=== PATIENT | male | born 1960 | race Caucasian/White ===

== ENCOUNTER 2019-05-30 08:11 | Emergency (ER) | payer SELFPAY ==
[2019-05-30 09:21] LABS: Bacteria/HPF 2+ HPF (None Seen); Bilirubin Negative (Negative); Blood, Urine 3+ (Negative); Clarity Clear (Clear); Glucose, Urine (Dipstick) Normal (Negative); Leukocyte Negative Leu/uL (Negative); Nitrite Negative (Negative); Protein, Urine (Dipstick) Negative (Neg-Trace); RBC/HPF 21-50 HPF (0-3); Squamous Epithelial 0-3 HPF (0-3); Urobilinogen Normal mg/dL (Less than 2); WBC/HPF 0-3 HPF (0-3)
== END 2019-05-30 09:40 | disposition home or self-care (01) ==
LOC: ERS 08:11
DX: R33.9 Retention of urine, unspecified (principal); I10 Essential (primary) hypertension; F41.9 Anxiety disorder, unspecified; F17.290 Nicotine dependence, other tobacco product, uncomplicated
CPT/HCPCS: 51702; 81003

== ENCOUNTER 2019-05-31 08:12 | Outpatient (CLI) | payer OTHER ==
--- NOTE | 2019-05-31 09:19 | CT ---
CT ABDOMEN AND PELVIS NONCONTRAST: INDICATION: Gross hematuria. COMPARISON: No prior comparison. FINDINGS: Bibasilar scarring/atelectasis is present. There is no urolithiasis or obstructive uropathy. Limite d evaluation of solid abdominal organs, bowel, lymph nodes, and vasculature on the basis of noncontra st technique. There is marked thickening of the urinary bladder wall with an indwelling Peña cathet er. Mild perivesicular fat stranding is present. There is enlargement of the prostate gland. The p rostate measures 5 cm in transverse diameter. There are scattered osseous degenerative changes. IMPRESSION: 1. Marked abnormal wall thickening of the urinary bladder with indwelling Peña catheter. There is perivesicular stranding, as well. Prostatomegaly is present. This could relate to sequelae from chr onic outlet obstruction. Superimposed infectious/inflammatory process or other infiltrative patholog y not excluded. Recommend clinical correlation in this regard. 2. No urolithiasis or obstructive uropathy otherwise depicted. 3. Evaluation otherwise limited in sensitivity on the basis of noncontrast technique. POS: [facility]
== END 2019-05-31 08:13 | disposition home or self-care (01) ==
LOC: BICCT 08:12
PROVIDERS: ATTEND Urology
DX: R31.0 Gross hematuria (principal)
CPT/HCPCS: 74176

== ENCOUNTER 2019-07-10 09:25 | Outpatient (CLI) | payer OTHER ==
--- NOTE | 2019-07-11 08:32 | MRI ---
MRI Pelvis W WO Con History: Prostate cancer. Staging. Comparison: None. Findings: Multiplanar multisequence MRI of the pelvis performed prior to and after the intravenous ad ministration of contrast. Exam was reviewed at an independent 3-D workstation. Prostate: The prostate measures 4.6 x 3.9 x 4.7 for a volume of 37.1 cc. Peripheral zone: From the base through the mid gland and apex from 3:00-7:00 there is marked hypointe nse signal on ADC and hyperintense signal on DWI. Transitional zone: Throughout the transitional zone there is noncircumscribed hypointense T2 signal. This involves the base, mid gland and apex. Capsule: Loss of normal hypointense T2 capsular signal on the left with focal bulge from 4:00-6:00. Neurovascular bundles: Abutment of the left neurovascular bundle from extraprostatic extension. Lymph nodes: No adenopathy. Small left mesorectal lymph nodes measure up to 5 mm. Bones: No abnormal foci of marrow signal replacement on the T1 weighted sequence to suggest osseous m etastatic disease. Intrapelvic soft tissues: Unremarkable. Seminal vesicles: Not definitively involved. Impression: 1. PIRADS 5: Very high (clinically significant cancer highly likely). This occurs throughout the vivar sitional zone from the base to the apex as well as the peripheral zone from 3:00 to 6:00 from the base of the apex. 2. Extraprostatic extension on the left at 4:00-6:00 with neurovascular bundle abutment. 3. Prostatic volume of 37.1 cc. 4. No evidence for osseous or lymphatic metastatic disease.
== END 2019-07-10 09:26 | disposition home or self-care (01) ==
LOC: TBSIIMAG 09:25
PROVIDERS: ATTEND Urology
DX: C61 Malignant neoplasm of prostate (principal)
CPT/HCPCS: 72197

== ENCOUNTER 2019-07-12 09:51 | Outpatient (CLI) | payer OTHER ==
--- NOTE | 2019-07-12 15:28 | NM ---
WHOLE BODY BONE SCAN: HISTORY: Prostate cancer RADIOPHARMACEUTICAL: 30 mCi technetium 99m-MDP injected intravenously COMPARISON: None CORRELATION: MRI prostate of 07/10/2019 FINDINGS: There is scattered degenerative activity in the appendicular skeleton. No other abnormal areas of tracer localization are seen in the skeleton to suggest metastatic disease . Tracer excretion through the kidneys is within normal limits. IMPRESSION: No scintigraphic evidence of osseous metastatic disease.
== END 2019-07-12 09:52 | disposition home or self-care (01) ==
LOC: NM 09:51
PROVIDERS: ATTEND Urology
DX: C61 Malignant neoplasm of prostate (principal)
CPT/HCPCS: 78306; A9503

== ENCOUNTER 2019-10-18 08:00 | Inpatient (IN) | payer BC ==
[2019-11-29 08:54] VITALS: BMI 19.9
[2019-12-12] MEDS ORDERED: Fentanyl 100 MCG/2 ML VIAL ONE ×2 (06:38→06:39)
[2019-12-12] MEDS ORDERED: Midazolam HCl 2 mg/2 ml Vial ONE ×2 (06:38→07:09)
[2019-12-12] MEDS ORDERED: cefOXitin Sodium 1 GM in Sodium Chloride 0.9% 100 ML IVPB PRN (06:52)
[2019-12-12] MEDS ORDERED: Gentamicin Sulfate 80 MG in Premix Bag 1 BAG IVPB PRN (06:55)
[2019-12-12] MEDS ORDERED: cefOXitin 2 GM VIAL ONE (11:00)
[2019-12-12] MEDS ORDERED: Bacitracin Zinc Ointment 30 gm TUBE ONE (14:04)
[2019-12-12] MEDS ORDERED: B & O ONE (14:05)
[2019-12-12] MEDS ORDERED: SUGAMMADEX SODIUM 500 MG/5 ML VIAL ONE (14:06)
[2019-12-12] MEDS ORDERED: Morphine Sulfate 2 MG/ML SYRINGE SLOW IVP PRN (14:28)
[2019-12-12] MEDS ORDERED: PACU-Morphine 4MG/ML VIAL SLOW IVP PRN (14:28)
[2019-12-12] MEDS ORDERED: Ondansetron HCl/PF 4 MG/2 ML Vial IVP PRN (14:28)
[2019-12-12] MEDS ORDERED: Meperidine HCl/PF 25 MG/ML VIAL SLOW IVP PRN (14:28)
[2019-12-12] MEDS ORDERED: Promethazine HCl 25 MG/ML VIAL IM PRN ×2 (14:28→14:45)
[2019-12-12] MEDS ORDERED: HYDROmorphone 2 MG/ML VIAL SLOW IVP PRN (14:28)
[2019-12-12] MEDS ORDERED: Promethazine HCl 25 MG/ML VIAL SLOW IVP PRN (14:28)
[2019-12-12] MEDS ORDERED: Zolpidem Tartrate 5 MG TAB PO PRN (14:45)
[2019-12-12] MEDS ORDERED: diphenhydrAMINE 50 MG/ML VIAL IM/IV PRN (14:45)
[2019-12-12] MEDS ORDERED: Naloxone HCl 0.4 mg/ml Vial IV PRN (14:45)
[2019-12-12] MEDS ORDERED: diphenhydrAMINE 25 MG CAP PO PRN (14:45)
[2019-12-12] MEDS ORDERED: fentaNYL Citrate/PF 2,000 MCG in Sodium Chloride 0.9% 60 ML IV PRN (14:45)
[2019-12-12] MEDS ORDERED: Dexamethasone 20 MG/5 ML VIAL ONE (14:57)
[2019-12-12] MEDS ORDERED: Rocuronium Bromide 10 MG/ML (10ML VIAL) ONE (14:57)
[2019-12-12] MEDS ORDERED: Ondansetron PF 4 MG/2 ML Vial ONE (14:57)
[2019-12-12] MEDS ORDERED: Vecuronium 10 MG VIAL ONE (14:57)
[2019-12-12] MEDS ORDERED: PROPOFOL 200 MG/20 ML VIAL ONE (14:57)
[2019-12-12] MEDS ORDERED: ePHEDrine/0.9% NaCl/PF SYRINGE 50 mg/10 ml ONE (14:57)
[2019-12-12] MEDS ORDERED: PHENYLEPHRINE-NS 100 MCG/ML 10 ML SYRINGE ONE (14:57)
[2019-12-12] MEDS ORDERED: hydrALAZINE 20 MG/ML VIAL ONE (15:20)
[2019-12-12] MEDS ORDERED: Mag-Al 1200 mg/1200 mg/30 ML UDCUP PO PRN (15:39)
[2019-12-12 16:18] LABS: Hemoglobin 15.2 g/dL (14.0-18.0); Mean Corpuscular HGB CONC 32.4 g/dL (32.0-36.0); Mean Corpuscular Hemoglobin 33.6 pg (27.0-31.0); Mean Platelet Volume 8.2 fL (7.4-10.4); Platelet Count 213 thou/uL (130-400); RBC Distribution Width 12.7 % (11.5-14.5); Red Blood Cell (RBC) Count 4.53 mill/uL (4.70-6.10); White Blood Cell (WBC) Count 12.4 thou/uL (4.8-10.8)
[2019-12-12 16:28] LABS: Anion Gap 12 mmol/L (10-20); BUN (Urea Nitrogen) 6 mg/dL (8.4-25.7); Calc. Creatinine Clearance 110 mL/min (70-130); Calcium 7.9 mg/dL (7.8-10.44); Carbon Dioxide 23 mmol/L (22-29); Chloride 106 mmol/L (98-107); Estimated GFR-MDRD Greater than 90; Glucose 113 mg/dL (70-105); Potassium 4.2 mmol/L (3.5-5.1); Sodium 137 mmol/L (136-145)
--- NOTE | 2019-12-12 17:27 | OP ---
DATE OF PROCEDURE: 12/12/2019 SERVICE: Urology. AUTOMATIC STACKER: Britney Velazquez DO. PREOPERATIVE DIAGNOSIS: Prostate cancer. POSTOPERATIVE DIAGNOSIS: Prostate cancer. PROCEDURES PERFORMED: 1. Robot-assisted laparoscopic prostatectomy with bilateral pelvic lymph node dissection with conversion of surgery to an open procedure. 2. Radical retropubic prostatectomy for completion of the surgery. INDICATIONS FOR PROCEDURE: Mr. Washburn is a 59-year-old white male, who presented to co with elevated PSA of 21. Prostate biopsy demonstrated [place] 4 + 5 prostate cancer in multiple cores. Metastatic workup was negative. We discussed options and recommended combined multimodal therapy with prostatectomy first followed by adjuvant radiation given that the patient has a high likelihood of having persistent disease. All risks and benefits of treatment course were discussed and he has agreed to proceed forward. DESCRIPTION OF PROCEDURE: After identification of armband and verification of consent, the patient was brought back to the operating room. He underwent general anesthesia with endotracheal intubation. He was then positioned for the robotic prostatectomy and prepped and draped in the usual sterile fashion. After appropriate time-out, pneumoperitoneum was obtained through the umbilicus with a Veress needle. Insufflation was carried out at high-flow and low-pressure until 15 mmHg was achieved. Ports were placed in the usual standard fashion with a 12-mm camera port below the umbilicus, a 15 mm robotic stapler port on the right with an players assistant 11-mm port and 5-mm players assistant port on the right and two 8-mm robotic ports on the left. The robot was then docked, and the robotic portion of the surgery was begun. The sigmoid colon was mobilized slightly to allow for proper retraction. An incision was made using monopolar cautery on the anterior aspect of the rectovesical space. The seminal vesicles and vas deferens were identified, but there was a significant amount of fibrotic tissue in this area. These were extremely densely stuck to the surrounding tissues and it was difficult for dissection, but dissection was ultimately achieved. Posterior dissection was attempted, but was difficult due to significant fibrosis. At this point, we elected to stop this portion and move on to the bladder. Incisions were made lateral to the anterior umbilical ligaments on both sides and the bladder dropped down. The bladder anatomy was significantly distorted with a very prominent right medial umbilical ligament and almost absent left medial umbilical ligament. Through some manipulation, the pubic arch was able to be identified and the bladder was able to be dropped down without any kind of bladder injury. The periprostatic space was then developed. The preprostatic fact was dissected off the prostate and was submitted for routine pathologic evaluation. Endopelvic fascia was opened on both sides and dissection was carried out towards the apex of the prostate to develop the lateral aspect of the prostate. The dorsal venous complex was then controlled using a green staple load on the robotic stapler. This resulted in good division of the DVC, but there was still some bleeding coming from anterior to the staple line. This was controlled with a 0 Vicryl on a CT1 needle in a [id number] fashion, which resulted in good hemostasis. The bladder neck was then begun and dissection was carried out with monopolar cautery until the catheter was encountered. Dissection was then carried out posteriorly, but again a significant amount of fibrotic tissue was encountered, which complete loss of the surgical plane between the bladder and prostate. Because the patient did have a known posterior bladder diverticulum, which contained the ureteral orifices, a small bladder injury was made in the midline posterior in the bladder diverticulum. The ureteral orifices did not appear to be injured and the cystotomy was approximately 2-3 mm. This area was accounted for and dissection was attempted to move into different locations, but due to the significant amount of fibrosis, at this point, I felt that I would not be able to safely complete the procedure robotically. I was extremely concerned about being in the wrong plane, dissecting too far posteriorly and ending up in the patient's rectum. As such, I decided to abandon this portion of the procedure and completed open to help assist with the open portion of the surgery. The urethra was dissected out robotically by finishing the anterior dissection. The urethra was dissected out and sharply divided for a nice urethral stump. The rectourethralis muscle was also divided. Bilateral pelvic lymph node dissections were completed using the landmarks of the circumflex femoral vein anteriorly, obturator nerve posteriorly, pubic arch inferiorly, and iliac vein superiorly. All the intervening tissue was removed on the right side. The obturator artery had a small injury, which required Hem-o-migel clips applied to both sides of the obturator artery. Care was taken to make sure the artery was not near the nerve when the clips were applied and the nerve was fully dissected and no clips were found on the obturator nerve. There was no injury to the left side. Both sides had good hemostasis upon completion. An Endo pouch bag was brought in to capture all of the lymph node specimens and these were then brought out through the players assistant port. At this portion, we decided to convert to the open portion of the surgery. The robot was undocked and a Chepe-Sharad was used to close the 11-mm players assistant port and the 15-mm stapler port. Once this was done, the insufflation was taken down. All ports were removed. A midline incision was made from the umbilical incision down to the pubic symphysis with a 10 blade. A Bovie electrocautery was used to dissect between the rectus muscles and dissected into the previously dissected space within the peritoneum and retropubic area, which were now contiguous from the robotic portion. The Bookwalter was applied for retraction. We were able to lift the apex of the prostate up and it was completely fused to the rectum using Metzenbaum scissors. The prostate was slowly peeled away off the rectum with great care to avoid or any rectal injury and none were encountered. The pedicles were divided and a single pedicle artery was oversewn using a 4-0 Vicryl. The space previously dissected for SVs was encountered and the remainder of the bladder neck was dissected under manual dissection until the entire prostate was removed. This was then passed off for routine pathologic evaluation to accompany the lymph node dissection. The bladder was inspected and it was found that there was a fairly large median lobe still attached to the bladder, which contained a fair amount of prostate. This was trimmed off after the ureteral orifices were identified in the posterior diverticulum to ensure that there would not be a ureteral injury. In doing so, the previous cystotomy that was made was incorporated into the bladder neck, obviating a need for any further bladder repair. However, the bladder neck was very wide, so we did perform a bladder neck tapering sutures both on the posterior aspect and on the lateral aspect to make a nice bladder neck. The detrusor muscle was approximated on the posterior aspect of the bladder for more thickening. The bladder mucosa was then everted as it had retracted a fair amount using 4-0 chromic circumferentially around the bladder, which resulted in nice mucosal eversion. Anastomotic sutures were then placed using a 2-0 Vicryl on the UR6, outside in on the urethra and inside out on the bladder, placing sutures at 6 o'clock, 5, and 7, approximately 2 and 10 and at 12 o'clock. The final catheter was then passed through the urethra into the bladder and 15 mL of sterile water placed into the balloon. This was then used to help approximate the bladder neck to the urethra and the sutures were then tied down, starting on the posterior aspect up to the anterior aspect. The bladder was irrigated and there was noted to be a very minor leak coming from around the anastomosis, which will need to be checked for on postoperative with a cystogram. A drain was brought in through the most lateral #3 robotic arm port and placed on the anterior bladder. This was secured with a 2-0 nylon. The periprostatic space then had Tisseel applied for hemostasis. The fascia was then closed using a #1 PDS in a running fashion and then the skin closed with skin yadira. Since we did use yadira along the midline incision, I went ahead and used yadira as well on the port site. Upon completion, the patient was taken out of positioning. He had a StatLock for securing his catheter. He was then awakened and taken to PACU for recovery in stable condition. COMPLICATIONS: None. ESTIMATED BLOOD LOSS: 300 mL. RETAINED TUBES AND DRAINS: An 18-Uzbek Peña catheter with 15 mL of sterile water in the balloon and a #19 ASHLEY drain. SPECIMENS: Prostate, bilateral seminal vesicles, and bilateral pelvic lymph nodes with preprostatic fat. DISPOSITION: The patient will be admitted to the hospital for postoperative recovery. Once he is stable, he will be discharged home and he will follow up with me on an outpatient basis for his cancer surveillance and postoperative care. Job ID: [id number]
[2019-12-12] MEDS: Sodium Chloride 0.9% 1,000 ML IV SCH (17:59)
[2019-12-12] MEDS: Acetaminophen 500 MG TAB PO SCH ×2 (18:23→23:51)
[2019-12-12] MEDS: cefOXitin 1.5 GM in Sodium Chloride 0.9% 100 ML IVPB SCH (18:24)
[2019-12-12] MEDS: Docusate 100 MG CAP PO SCH (21:15)
[2019-12-13] MEDS: Sodium Chloride 0.9% 1,000 ML IV SCH (03:42)
[2019-12-13] MEDS: cefOXitin 1.5 GM in Sodium Chloride 0.9% 100 ML IVPB SCH ×2 (03:42→09:17)
[2019-12-13 05:04] LABS: #Lymphocytes 1.5 thou/uL (1.20-3.40); #Monocytes 1.4 thou/uL (0.11-0.59); %Basophils 0.4 % (0.0-1.0); %Eosinophils 0.3 % (0.0-10.0); %Lymphocytes 14.8 % (21.0-51.0); %Monocytes 13.8 % (0.0-10.0); %Neutrophils 70.7 % (42.0-75.0); Hemoglobin 13.3 g/dL (14.0-18.0); Mean Corpuscular HGB CONC 33.3 g/dL (32.0-36.0); Mean Corpuscular Hemoglobin 34.8 pg (27.0-31.0); Mean Platelet Volume 7.9 fL (7.4-10.4); Platelet Count 187 thou/uL (130-400); RBC Distribution Width 12.7 % (11.5-14.5); Red Blood Cell (RBC) Count 3.82 mill/uL (4.70-6.10); White Blood Cell (WBC) Count 9.9 thou/uL (4.8-10.8)
[2019-12-13] MEDS: Acetaminophen 500 MG TAB PO SCH ×4 (05:15→23:57)
[2019-12-13 05:23] LABS: Anion Gap 9 mmol/L (10-20); BUN (Urea Nitrogen) 7 mg/dL (8.4-25.7); Calc. Creatinine Clearance 93 mL/min (70-130); Calcium 7.5 mg/dL (7.8-10.44); Carbon Dioxide 25 mmol/L (22-29); Chloride 105 mmol/L (98-107); Estimated GFR-MDRD Greater than 90; Glucose 109 mg/dL (70-105); Sodium 135 mmol/L (136-145)
[2019-12-13] MEDS ORDERED: FLU VACC QS2019-20(6MOS UP)/PF 60 MCG/0.5 ML SYRINGE IM ONE (09:00)
[2019-12-13] MEDS: Docusate 100 MG CAP PO SCH ×2 (09:14→21:17)
--- NOTE | 2019-12-13 10:24 | ULT ---
BILATERAL RENAL ULTRASOUND: Date: 12/13/2019 INDICATION: Evaluate for hydronephrosis. COMPARISON: Prior noncontrast CT of the abdomen and pelvis dated 05/31/2019. FINDINGS: There is no evidence of focal renal lesion or hydronephrosis. The bladder is decompressed with a Fole y catheter. Right kidney measures 11.8 x 4.9 x 7.0 cm. Left kidney measures 11.8 x 5.5 x 5.7 cm. IMPRESSION: 1. No focal renal lesion or hydronephrosis. 2. Peña catheter within decompressed bladder. POS: [facility]
[2019-12-13] MEDS ORDERED: Bupivacaine HCl 0.5%/Epinephrine 1:200,000/PF 30 ml Vial ONE (15:00)
--- NOTE | 2019-12-13 18:19 | PRG ---
DATE OF SERVICE: 12/13/2019 SUBJECTIVE: The patient states he is sore on his belly. He does have a little bit of an appetite. He has not been up out of bed. He is using his incentive spirometer. He is not complaining of any significant bladder spasms. He denies any chest pain or shortness of breath. He is not passed any gas. OBJECTIVE: VITAL SIGNS: Temperature 98.8, pulse 84, respirations 18, blood pressure 161/73, saturations 93% on room air. GENERAL: In no apparent distress. He is alert. CARDIOVASCULAR: Regular rate and rhythm. ABDOMEN: Soft, mildly tender to palpation. No guarding or rebound. Positive bowel sounds somewhat hypoactive. ASHLEY drain is in place with serosanguineous fluid. : Peña catheter in place secured with blood-tinged urine, but mostly clear. EXTREMITIES: No clubbing, cyanosis, or edema. SCDs in place. LABORATORY EVALUATION: Full set of labs are in the [facility] system, which I have reviewed. Of note, the patient's white count is 9.9, hemoglobin 13.3. Creatinine of 0.76, sodium of 135. ASSESSMENT AND PLAN: A 59-year-old white male, status post robotic prostatectomy converted to open, postop day 1. He appears to be as expected for a fairly long and difficult surgery. He is currently on a THERMAL CUTTER HELPER, which I would continue for the time being. So long as his pain is relatively well controlled, I do think he can be transitioned to oral pain medication in the near future. I have encouraged him to begin getting up and walking out of bed with assistance. He should keep his Peña secured during this time. I will advance his diet to regular diet and he does have some appetite. I would recommend keeping the ASHLEY drain in for now. We will plan for ASHLEY creatinine when it becomes closer time for drain removal. Dr. Ba will be covering for me over the weekend and I will resume care on Monday. Job ID: [id number]
[2019-12-14 05:26] LABS: #Basophils 0.1 thou/uL (0.0-0.2); #Eosinphils 0.1 thou/uL (0.0-0.7); #Lymphocytes 2.2 thou/uL (1.20-3.40); #Monocytes 1.2 thou/uL (0.11-0.59); #Neutrophils 6.7 thou/uL (1.40-6.50); %Eosinophils 1.1 % (0.0-10.0); %Lymphocytes 21.2 % (21.0-51.0); %Monocytes 11.6 % (0.0-10.0); %Neutrophils 65.2 % (42.0-75.0); Hemoglobin 14.3 g/dL (14.0-18.0); Mean Corpuscular HGB CONC 33.4 g/dL (32.0-36.0); Mean Corpuscular Hemoglobin 35.3 pg (27.0-31.0); Mean Platelet Volume 7.9 fL (7.4-10.4); Platelet Count 185 thou/uL (130-400); RBC Distribution Width 12.7 % (11.5-14.5); Red Blood Cell (RBC) Count 4.05 mill/uL (4.70-6.10); White Blood Cell (WBC) Count 10.3 thou/uL (4.8-10.8)
[2019-12-14] MEDS: Acetaminophen 500 MG TAB PO SCH ×3 (05:41→17:12)
[2019-12-14 05:45] LABS: Anion Gap 11 mmol/L (10-20); BUN (Urea Nitrogen) 7 mg/dL (8.4-25.7); Calc. Creatinine Clearance 110 mL/min (70-130); Calcium 7.9 mg/dL (7.8-10.44); Carbon Dioxide 22 mmol/L (22-29); Chloride 106 mmol/L (98-107); Estimated GFR-MDRD Greater than 90; Glucose 93 mg/dL (70-105); Potassium 3.7 mmol/L (3.5-5.1); Sodium 135 mmol/L (136-145)
[2019-12-14] MEDS: hydrALAZINE 20 MG/ML VIAL SLOW IVP PRN ×2 (05:46→15:56)
[2019-12-14] MEDS: Docusate 100 MG CAP PO SCH ×2 (08:03→20:24)
[2019-12-14] MEDS: Metoprolol Tartrate 50 MG TAB PO PRN ×2 (09:58→20:24)
[2019-12-14] MEDS: Sodium Chloride 0.9% 1,000 ML IV SCH (11:54)
[2019-12-14] MEDS: Ondansetron PF 4 MG/2 ML Vial IVP PRN (17:01)
--- NOTE | 2019-12-14 17:29 | PRG ---
DATE OF SERVICE: 12/14/2019 SUBJECTIVE: Mr. Washburn is overall doing well. He is tolerating a regular diet. He has ambulated. He has not yet passed flatus. He feels somewhat bloated. He has not had a bowel movement. No chest pain or shortness of breath. No other complaints. OBJECTIVE: VITAL SIGNS: Temperature 98.1, heart rate 60s to 70s, blood pressure 169 to 195 over 70s to 90s, respirations 18, and oxygen saturation 95% on room air. GENERAL: He is awake and alert. No apparent distress. CARDIOVASCULAR: Regular rate and rhythm. PULMONARY: Breathing unlabored. ABDOMEN: Soft, appropriately tender to palpation, nondistended. Incision with dressing in place, clean, dry, and intact. GENITOURINARY: Peña catheter in place, draining clear yellow urine. EXTREMITIES: Warm, well perfused. No edema. NEUROLOGIC: No focal deficits. LABORATORY DATA: Hemoglobin 14.3, hematocrit 42.7. Sodium 135, potassium 3.7, chloride 106, bicarb 22, BUN 7, and creatinine 0.64. ASSESSMENT: A 59-year-old male with prostate cancer, postoperative day #2, status post robot-assisted laparoscopic prostatectomy converted to radical retropubic prostatectomy. PLAN: Encourage ambulation. We will discontinue CLASS 1 OWNER OPERATOR as the patient's pain is well controlled and he is not using it much. Transition to oral pain medication with IV for breakthrough pain. Encourage him to eat only small amounts until he has return of bowel function. His urine output and renal function are normal. Anticipate discharge home within the next 1 to 2 days. Job ID: [id number]
[2019-12-14] MEDS: Morphine 2 MG/ML SYRINGE SLOW IVP PRN (17:33)
[2019-12-14] MEDS: HYDROcodone/Acetaminophen 7.5/325 mg Tablet PO PRN (20:23)
[2019-12-15] MEDS: Acetaminophen 500 MG TAB PO SCH ×5 (00:43→23:46)
[2019-12-15 05:42] LABS: #Basophils 0.1 thou/uL (0.0-0.2); #Eosinphils 0.2 thou/uL (0.0-0.7); #Lymphocytes 1.6 thou/uL (1.20-3.40); #Monocytes 1.5 thou/uL (0.11-0.59); #Neutrophils 8.7 thou/uL (1.40-6.50); %Basophils 1.1 % (0.0-1.0); %Eosinophils 1.9 % (0.0-10.0); %Lymphocytes 13.2 % (21.0-51.0); %Monocytes 12.5 % (0.0-10.0); %Neutrophils 71.4 % (42.0-75.0); Hemoglobin 15.8 g/dL (14.0-18.0); Mean Corpuscular HGB CONC 34.1 g/dL (32.0-36.0); Mean Corpuscular Hemoglobin 35.8 pg (27.0-31.0); Mean Platelet Volume 7.8 fL (7.4-10.4); Platelet Count 214 thou/uL (130-400); RBC Distribution Width 12.7 % (11.5-14.5); Red Blood Cell (RBC) Count 4.41 mill/uL (4.70-6.10); White Blood Cell (WBC) Count 12.2 thou/uL (4.8-10.8)
[2019-12-15 05:46] LABS: Anion Gap 13 mmol/L (10-20); BUN (Urea Nitrogen) 7 mg/dL (8.4-25.7); Calc. Creatinine Clearance 116 mL/min (70-130); Calcium 8.3 mg/dL (7.8-10.44); Carbon Dioxide 20 mmol/L (22-29); Chloride 100 mmol/L (98-107); Estimated GFR-MDRD Greater than 90; Glucose 101 mg/dL (70-105); Potassium 3.3 mmol/L (3.5-5.1); Sodium 130 mmol/L (136-145)
[2019-12-15] MEDS: Sodium Chloride 0.9% 1,000 ML IV SCH (06:24)
[2019-12-15] MEDS: Docusate 100 MG CAP PO SCH ×2 (08:31→20:44)
[2019-12-15] MEDS: hydrALAZINE 20 MG/ML VIAL SLOW IVP PRN (08:32)
[2019-12-15] MEDS: Ondansetron PF 4 MG/2 ML Vial IVP PRN (08:45)
[2019-12-15] MEDS: HYDROcodone/Acetaminophen 7.5/325 mg Tablet PO PRN ×4 (08:45→22:54)
[2019-12-15] MEDS: Morphine 2 MG/ML SYRINGE SLOW IVP PRN (12:04)
[2019-12-15] MEDS: Oxybutynin 5 MG TAB PO PRN (13:30)
[2019-12-15] MEDS ORDERED: Potassium Chloride 20 MEQ TAB PO SCH (16:45)
--- NOTE | 2019-12-15 17:58 | PRG ---
DATE OF SERVICE: 12/15/2019 SUBJECTIVE: The patient is doing well. He has not yet passed flatus. He is ambulating and ambulated 3 times in the hallway today so far. He continues to feel bloated. He is tolerating his diet without nausea, but is eating only small amounts. He has not had a bowel movement. He has no chest pain or shortness of breath. No other complaints. OBJECTIVE: VITAL SIGNS: Temperature 98.6, pulse 82, respirations 12, oxygen saturation 94% on room air, blood pressure 146/86. GENERAL: He is alert and oriented x3, in no apparent distress. CARDIOVASCULAR: Regular rate and rhythm. PULMONARY: Breathing unlabored. ABDOMEN: Soft, moderately distended and tympanitic to percussion. Hypoactive bowel sounds. Incision clean/dry/intact with dressings in place. ASHLEY drain with scant serosanguineous output. GENITOURINARY: Peña catheter in place, draining clear yellow urine. EXTREMITIES: Warm and well perfused. No edema. NEUROLOGIC: No focal deficits. LABORATORY DATA: White blood cell count 12.2, hemoglobin 15.8, hematocrit 46.3, platelets of 214. Sodium 130, potassium 3.3, chloride 100, bicarb 20, BUN 13, creatinine 0.61. ASSESSMENT: A 59-year-old male, postoperative day #3, status post robotic prostatectomy converted to radical retropubic prostatectomy, now with ileus, hypokalemia, and hyponatremia. PLAN: The patient's sodium has drifted down as well as his potassium. We will replace potassium orally. Regarding the sodium, the patient is now heparin locked, I encouraged him to his food. We will monitor this. He is asymptomatic. He continues to have an ileus. We will avoid suppositories given the complex nature of this surgery with the prostate being stuck to the rectum. Recommend he continues ambulating. He has no nausea or vomiting. We will check a drain fluid creatinine today. Drain output has diminished significantly and is now minimal and likely can be removed tomorrow. Anticipate discharge once ileus resolves. Job ID: [id number]
[2019-12-16 05:10] LABS: Hemoglobin 16.2 g/dL (14.0-18.0); Mean Corpuscular HGB CONC 33.9 g/dL (32.0-36.0); Mean Corpuscular Hemoglobin 34.8 pg (27.0-31.0); Mean Platelet Volume 8.2 fL (7.4-10.4); Platelet Count 226 thou/uL (130-400); RBC Distribution Width 12.6 % (11.5-14.5); Red Blood Cell (RBC) Count 4.65 mill/uL (4.70-6.10); White Blood Cell (WBC) Count 16.3 thou/uL (4.8-10.8)
[2019-12-16] MEDS: HYDROcodone/Acetaminophen 7.5/325 mg Tablet PO PRN ×2 (05:20→20:37)
[2019-12-16] MEDS: Oxybutynin 5 MG TAB PO PRN ×2 (05:21→14:25)
[2019-12-16] MEDS: Acetaminophen 500 MG TAB PO SCH ×4 (05:25→23:35)
[2019-12-16 05:34] LABS: Anion Gap 13 mmol/L (10-20); BUN (Urea Nitrogen) 7 mg/dL (8.4-25.7); Calc. Creatinine Clearance 120 mL/min (70-130); Calcium 8.3 mg/dL (7.8-10.44); Carbon Dioxide 21 mmol/L (22-29); Chloride 97 mmol/L (98-107); Estimated GFR-MDRD Greater than 90; Glucose 90 mg/dL (70-105); Potassium 3.9 mmol/L (3.5-5.1); Sodium 127 mmol/L (136-145)
[2019-12-16] MEDS: Docusate 100 MG CAP PO SCH ×2 (08:22→20:38)
[2019-12-16] MEDS: Sodium Chloride 0.9% 1,000 ML IV SCH (12:45)
--- NOTE | 2019-12-16 13:39 | PRG ---
DATE OF SERVICE: 12/16/2019 SUBJECTIVE: The patient states he is feeling fine. His belly is a little sensitive, but he is not complaining of overt pain. He has been walking about four times per day. He has had minimal amounts of flatus. No bowel movements. He denies any nausea or vomiting. He is tolerating clear liquids. OBJECTIVE: VITAL SIGNS: Temperature 98.6, pulse 82, respirations 16, blood pressure 157/83, and saturation 94% on room air. GENERAL: No apparent distress. Communicative and alert. CARDIOVASCULAR: Regular rate and rhythm. ABDOMEN: Soft, distended, sensitive to touch and palpation, but no rebound, guarding, or peritoneal signs. Incision is dressed. ASHLEY is serosanguineous. : Peña catheter in place, secured with StatLock with pink urine. EXTREMITIES: No clubbing, cyanosis, or edema. LABORATORY EVALUATION: The patient's white count is 16.3 with a hemoglobin of 16.2. Sodium is currently 127 with a creatinine of 0.59. ASHLEY fluid creatinine is 0.58. ASSESSMENT AND PLAN: A 59-year-old white male with evidence of an ileus with hyponatremia. His potassium is better today. I am not sure if the hyponatremia is secondary to volume overload. The patient is currently hep-locked. Another possibility is SIADH. I will go ahead and obtain a urinalysis to see if the urine is extremely concentrated as well as get a urinary sodium level. Medicine may need to be consulted if the hyponatremia persists. We will plan for labs tomorrow. We would recommend continued restriction of any diluted IV fluids to avoid further hyponatremia. The patient should continue to ambulate and walk, only do liquids as tolerated without any significant intake to avoid vomiting. I will continue to follow along. ASHLEY will probably be removed closer to discharge date. There is no evidence of urine leak at this time. Job ID: [id number]
[2019-12-16 14:12] LABS: Bilirubin Negative (Negative); Blood, Urine 3+ (Negative); Clarity Clear (Clear); Glucose, Urine (Dipstick) Normal (Negative); Leukocyte 250 Leu/uL (Negative); Nitrite Negative (Negative); Protein, Urine (Dipstick) 30 mg/dL (Neg-Trace); Urobilinogen Normal mg/dL (Less than 2)
[2019-12-17] MEDS: Acetaminophen 500 MG TAB PO SCH ×5 (00:33→18:47)
[2019-12-17 05:05] LABS: Anion Gap 12 mmol/L (10-20); BUN (Urea Nitrogen) 8 mg/dL (8.4-25.7); Calc. Creatinine Clearance 112 mL/min (70-130); Calcium 8.5 mg/dL (7.8-10.44); Carbon Dioxide 25 mmol/L (22-29); Chloride 96 mmol/L (98-107); Estimated GFR-MDRD Greater than 90; Glucose 114 mg/dL (70-105); Potassium 3.5 mmol/L (3.5-5.1); Sodium 129 mmol/L (136-145)
[2019-12-17 05:57] LABS: Band 18 % (5-11); Hemoglobin 15.5 g/dL (14.0-18.0); Lymphocytes 5 % (21-51); MDiff Complete? YES; Mean Corpuscular HGB CONC 31.9 g/dL (32.0-36.0); Mean Corpuscular Hemoglobin 32.9 pg (27.0-31.0); Mean Platelet Volume 7.9 fL (7.4-10.4); Monocytes 16 % (0-10); Neutrophil 61 % (42-75); Platelet Count 237 thou/uL (130-400); RBC Distribution Width 12.5 % (11.5-14.5); Red Blood Cell (RBC) Count 4.71 mill/uL (4.70-6.10); White Blood Cell (WBC) Count 13.4 thou/uL (4.8-10.8)
[2019-12-17] MEDS: Docusate 100 MG CAP PO SCH ×2 (09:11→20:13)
[2019-12-17] MEDS: Sodium Chloride 0.9% 1,000 ML IV SCH (11:20)
--- NOTE | 2019-12-17 12:26 | PRG ---
DATE OF SERVICE: 12/17/2019 SUBJECTIVE: The patient states he is feeling pretty good today. He has been up out of bed walking. He did have a small bowel movement yesterday and continues to pass gas. However, his abdomen remains fairly distended. He is not having any nausea. He did tolerate some solid food yesterday, but has mostly been drinking fluids. OBJECTIVE: VITAL SIGNS: Temperature 98.3, pulse 81, respirations 18, blood pressure 164/90, and saturation 93% on room air. GENERAL: No apparent distress, communicative, and alert. CARDIOVASCULAR: Regular rate and rhythm. ABDOMEN: Soft and distended. Incision currently dressed. ASHLEY serosanguineous. No rebound or guarding or peritoneal signs. Positive bowel sounds. : Peña catheter in place, secured with clear yellow urine. EXTREMITIES: No clubbing, cyanosis, or edema. LABORATORY EVALUATION: A full set of labs are in the [facility] system, which I have reviewed. Of note, the patient's white count is 13.4 and hemoglobin of 15.5. Creatinine is currently 0.63. Sodium has increased slightly to 129. Urine shows less than 20 urinary sodium on spot test. ASSESSMENT AND PLAN: A 59-year-old white male with hyponatremia and prostate cancer status post robot assisted lap prostatectomy converted to radical retropubic prostatectomy, complicated by postoperative ileus. The ileus does seem to be resolving as the patient is now having some bowel movements. However, he remains significantly distended. I would recommend continued ambulation, minimizing narcotics, and waiting until he is having better bowel movements with decompression of his abdomen before sending him home. Additionally, the patient's sodium continues to be quite low. I would recommend consultation with Nephrology at this point for consideration for syndrome of inappropriate antidiuretic hormone secretion to ensure that the patient does not have any type of cerebral risk. As I would not recommend him being discharged with a sodium level of 129. We will continue to monitor and make treatment plans and recommendations as appropriate. Job ID: [id number]
[2019-12-17] MEDS ORDERED: STERILE WATER IV SCH (18:15)
[2019-12-17] MEDS ORDERED: SODIUM CHLORIDE IV SCH (18:15)
[2019-12-17] MEDS: Oxybutynin 5 MG TAB PO PRN (18:50)
[2019-12-17] MEDS: HYDROcodone/Acetaminophen 7.5/325 mg Tablet PO PRN (18:50)
[2019-12-17] MEDS: Metoprolol Tartrate 25 MG TAB PO SCH (20:13)
[2019-12-17 23:35] LABS: Anion Gap 11 mmol/L (10-20); BUN (Urea Nitrogen) 8 mg/dL (8.4-25.7); Calc. Creatinine Clearance 112 mL/min (70-130); Calcium 8.3 mg/dL (7.8-10.44); Carbon Dioxide 28 mmol/L (22-29); Chloride 97 mmol/L (98-107); Estimated GFR-MDRD Greater than 90; Glucose 110 mg/dL (70-105); Potassium 3.3 mmol/L (3.5-5.1); Sodium 133 mmol/L (136-145)
--- NOTE | 2019-12-18 00:39 | CON ---
DATE OF CONSULTATION: SERVICE: Renal Medicine. HISTORY OF PRESENT ILLNESS: Mr. Washburn is a 59-year-old white male, who was admitted due to elevated PSA secondary to a prostate cancer. The patient underwent initially robotic laparoscopic prostatectomy, which was converted to an open prostatectomy. We are now being consulted for his progressive azotemia-mostly his serum sodium has gone down to as low as 127. It is now currently at 129. Of interest, this patient has been increasing his free water intake in the last few days after his surgery. REVIEW OF SYSTEMS: No chest pain or shortness of breath. No nausea. No vomiting. Positive for mild postop pain. No diarrhea. No constipation. No productive cough. Denies any gross hematuria per se. No headache. No fever or chills. No abdominal pain. Appetite and energy level are fair. MEDICATIONS: Currently on; 1. P.r.n. acetaminophen. 2. Hydralazine 20 mg IV q.6 hours p.r.n. 3. Metoprolol 50 mg p.o. q.6 p.r.n. 4. Morphine 2 mg IV q.4 p.r.n. 5. Oxybutynin 5 mg q.8 p.r.n.. PAST MEDICAL HISTORY: Recent diagnosis of prostate cancer. PAST SURGICAL HISTORY: Recently status post laparoscopic prostatectomy with conversion to an open prostatectomy. SOCIAL HISTORY: The patient is . No children. Smoked for 25 years 1-1/2 pack per day. Alcohol 4 beers a day. 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 He lives in [place]. Denies any blood transfusion. No IV drug abuse. Education, college graduate. Two siblings. FAMILY HISTORY: Positive family history of prostate cancer and bladder cancer in the family-father had prostate cancer. ALLERGIES: NO KNOWN DRUG ALLERGIES. TRAUMA: None. IMMUNIZATION: Up-to-date. HOSPITALIZATIONS: Please see past medical history. PHYSICAL EXAMINATION: VITAL SIGNS: Blood pressure is 152/90, heart rate 96, respiratory rate 16, temperature 99.1, O2 saturation 93% on room air. GENERAL: Awake, alert, supine, comfortable, not in distress. SKIN: Adequate turgor. HEENT: He has pinkish conjunctivae. Anicteric sclerae. No neck mass. No carotid bruits. No JVD. CHEST: No deformities. LUNGS: Clear breath sounds. No wheezing. No crackles. HEART: Normal sinus rhythm. No murmur. No gallops. No rubs. ABDOMEN: Globular, soft, nontender, no masses. Positive for bowel sounds. Negative for epigastric bruits. GROIN: No inguinal lymphadenopathy. EXTREMITIES: No edema. No deformities. NEUROLOGICAL: Awake, alert, oriented to 3 spheres. Moving all extremities. No tremors. No asterixis. LABORATORY DATA: Laboratories of December 17, 2019; white count 13.4, hemoglobin 15.5, hematocrit 48.6. Sodium 129, potassium 3.5, chloride 96, carbon dioxide 25, BUN 8, creatinine 0.63, glucose 104, calcium 8.5. Urinalysis of December 16, 2019, specific gravity 1.010. Urine sodium is less than 20. ASSESSMENT AND PLAN: 1. Hyponatremia-I suspect this could be hypovolemic hyponatremia due to the decreased p.o. intake with this patient as well as due to a low urine sodium. My bias is to correct the hyponatremia with IV fluid. We can consider giving him 1.5% sodium chloride and run this at 75 mL/hour. We will recheck a basic metabolic panel 6-4 hours after this. We will do a free water restriction also of 1.5 L per day. I think he will tolerate this hypertonic saline since the patient is not in any degree of volume overload. 2. Hypertension. In view of the fact that I will be giving hypertonic saline for this patient, I would probably place him on a regular dose of his blood pressure. We will start him on metoprolol tartrate at 25 mg tablet p.o. b.i.d. on a regular basis. 3. We will recheck basic metabolic panel again in a.m. 4. Prostate cancer, recently status post radical prostatectomy. Dr. Macias is following. Thank you for the consult. We will continue to follow. Job ID: [id number]
[2019-12-18] MEDS: Acetaminophen 500 MG TAB PO SCH ×5 (01:04→23:56)
[2019-12-18 05:55] LABS: Anion Gap 13 mmol/L (10-20); BUN (Urea Nitrogen) 9 mg/dL (8.4-25.7); Calc. Creatinine Clearance 112 mL/min (70-130); Calcium 8.4 mg/dL (7.8-10.44); Carbon Dioxide 24 mmol/L (22-29); Chloride 98 mmol/L (98-107); Estimated GFR-MDRD Greater than 90; Glucose 104 mg/dL (70-105); Potassium 3.3 mmol/L (3.5-5.1); Sodium 132 mmol/L (136-145)
[2019-12-18 06:33] LABS: Band 11 % (5-11); Eosinophils 2 % (0-10); Hemoglobin 15.8 g/dL (14.0-18.0); Lymphocytes 12 % (21-51); MDiff Complete? YES; Macrocytosis SLIGHT = 6-15 cells (100X) (0-5/hpf); Mean Corpuscular HGB CONC 33.3 g/dL (32.0-36.0); Mean Corpuscular Hemoglobin 34.6 pg (27.0-31.0); Monocytes 11 % (0-10); Neutrophil 64 % (42-75); Platelet Count 268 thou/uL (130-400); Platelet Morphology Comment Appears Adequate; RBC Distribution Width 12.5 % (11.5-14.5); Red Blood Cell (RBC) Count 4.58 mill/uL (4.70-6.10); Toxic Granulation SLIGHT; White Blood Cell (WBC) Count 11.7 thou/uL (4.8-10.8)
[2019-12-18] MEDS ORDERED: Potassium Chloride 20 MEQ TAB PO SCH (08:30)
--- NOTE | 2019-12-18 09:46 | PRG ---
DATE OF SERVICE: 12/18/2019 SERVICE: Renal Medicine. SUBJECTIVE: Mr. Washburn is a 59-year-old white male with known history of hyponatremia. Serum sodium yesterday was noted at 129. I reviewed the urine sediment. It was suggestive he may have hypovolemic hyponatremia. We decided to give him 1.5% sodium chloride. Serum sodium is improved this morning at a value of 132. Workup for the hyponatremia was also done, and his TSH was noted to be at 2.7 with a cortisol of 24, which was within normal. However, I did check the uric acid, which was 2.6. It is possible that this patient may indeed have an underlying SIADH. For this reason, we will be continuing his 1.5% sodium chloride, and we will consider starting on sodium chloride tablets at 1 g p.o. t.i.d. No other complaints today. No chest pain or shortness of breath. He is passing air/flatus. OBJECTIVE: VITAL SIGNS: Blood pressure is noted at 129/80, heart rate 68, respiratory rate 16, temperature 98.9, pulse ox 95%. GENERAL: Awake, alert, comfortable, not in distress. SKIN: Adequate turgor. HEENT: Pinkish conjunctivae. Anicteric sclerae. NECK: No neck mass. No carotid bruits. No JVD. CHEST: No deformities. LUNGS: Clear breath sounds. No wheezing. No crackles. HEART: Normal sinus rhythm. No murmur. No gallops. No rubs. ABDOMEN: Globular, soft, and nontender. EXTREMITIES: No edema. No deformities. MEDICATIONS: Medications of December 18, 2019, were reviewed. LABORATORY DATA: Laboratories of December 18, 2019: White count 11.7, hemoglobin 15.8. Sodium 132, potassium 3.3, chloride 98, carbon dioxide 24, BUN 9, creatinine 0.63, calcium 8.4. ASSESSMENT AND PLAN: 1. Hyponatremia - initial evaluation suggested he may simply have hypovolemic hyponatremia. His urine sodium was noted to be less than 20. For that reason, we empirically gave him volume. However, the uric acid is noted to be on the low side suggesting that a component of SIADH is possible with this patient. We will be starting this patient on sodium chloride tablet at 1 g p.o. t.i.d. For the moment, we will continue with the hypertonic saline - 1.5% sodium chloride, and I did increase it back to 75 mL/hour. 2. Hypokalemia. K-Dur 40 mEq 1 tablet was given today. 3. Status post radical prostatectomy, stable. Surgery is following. 4. Recheck basic metabolic panel and CBC in a.m. Job ID: [id number]
[2019-12-18] MEDS: Metoprolol Tartrate 25 MG TAB PO SCH ×2 (09:51→21:30)
[2019-12-18] MEDS: Docusate 100 MG CAP PO SCH ×2 (09:51→21:30)
[2019-12-18] MEDS: STERILE WATER IV SCH ×3 (10:55→23:54)
[2019-12-18] MEDS: SODIUM CHLORIDE IV SCH ×3 (10:55→23:54)
[2019-12-18] MEDS: Sodium Chloride 1 GM TAB PO SCH ×2 (18:51→21:30)
[2019-12-18] MEDS: HYDROcodone/Acetaminophen 7.5/325 mg Tablet PO PRN (18:52)
[2019-12-18 19:00] LABS: Anion Gap 11 mmol/L (10-20); BUN (Urea Nitrogen) 10 mg/dL (8.4-25.7); Calc. Creatinine Clearance 118 mL/min (70-130); Calcium 8.4 mg/dL (7.8-10.44); Carbon Dioxide 27 mmol/L (22-29); Chloride 101 mmol/L (98-107); Estimated GFR-MDRD Greater than 90; Glucose 118 mg/dL (70-105); Potassium 3.9 mmol/L (3.5-5.1); Sodium 135 mmol/L (136-145)
[2019-12-19 05:42] LABS: Anion Gap 11 mmol/L (10-20); BUN (Urea Nitrogen) 9 mg/dL (8.4-25.7); Calc. Creatinine Clearance 124 mL/min (70-130); Calcium 8.1 mg/dL (7.8-10.44); Carbon Dioxide 26 mmol/L (22-29); Chloride 104 mmol/L (98-107); Estimated GFR-MDRD Greater than 90; Glucose 135 mg/dL (70-105); Potassium 3.5 mmol/L (3.5-5.1); Sodium 137 mmol/L (136-145)
[2019-12-19 06:03] LABS: Band 25 % (5-11); Eosinophils 2 % (0-10); Hemoglobin 14.6 g/dL (14.0-18.0); Lymphocytes 10 % (21-51); MDiff Complete? YES; Macrocytosis SLIGHT = 6-15 cells (100X) (0-5/hpf); Mean Corpuscular Hemoglobin 33.5 pg (27.0-31.0); Mean Platelet Volume 7.6 fL (7.4-10.4); Monocytes 16 % (0-10); Neutrophil 47 % (42-75); Platelet Count 334 thou/uL (130-400); RBC Distribution Width 12.6 % (11.5-14.5); Red Blood Cell (RBC) Count 4.35 mill/uL (4.70-6.10)
[2019-12-19] MEDS: Acetaminophen 500 MG TAB PO SCH ×4 (06:08→23:47)
[2019-12-19] MEDS: Sodium Chloride 1 GM TAB PO SCH ×3 (08:28→21:30)
[2019-12-19] MEDS: Docusate 100 MG CAP PO SCH ×2 (08:28→21:30)
[2019-12-19] MEDS: Metoprolol Tartrate 25 MG TAB PO SCH ×2 (08:30→21:30)
--- NOTE | 2019-12-19 09:41 | PRG ---
DATE OF SERVICE: 12/19/2019 SUBJECTIVE: Wu is a 59-year-old white male, who underwent a radical open prostatectomy due to prostate cancer. During this hospitalization, he was noted to be hyponatremic. Initially, the hyponatremia was felt that it could be from a hypovolemic hyponatremia versus SIADH. My feeling is that aside from some degree of volume depletion, he may have underlying SIADH. He was given a 1.5% sodium chloride with improvement of the serum sodium. He is also on free water restriction. I have placed him on sodium chloride tab at 1 g p.o. t.i.d. Serum sodium this morning is much improved. The patient voices no new complaints. No chest pain or shortness of breath. OBJECTIVE: VITAL SIGNS: Blood pressure is 134/79, heart rate 65, respiratory rate 15, temperature 99, pulse ox 91% on room air. GENERAL: The patient is awake, alert, comfortable, not in overt distress. SKIN: Adequate turgor. HEENT: Pinkish conjunctivae. Anicteric sclerae. NECK: No neck mass. No carotid bruits. No JVD. CHEST: No deformities. LUNGS: Clear breath sounds. No wheezing. No crackles. HEART: Normal sinus rhythm. No murmurs, gallops, or rubs. ABDOMEN: Globular, soft, nontender. EXTREMITIES: No edema. MEDICATIONS: Medications of December 19, 2019 was reviewed. LABORATORY DATA: Laboratories of December 19, 2019; white count 14, hemoglobin 14.6. Sodium was 137, potassium 3.5, chloride 104, carbon dioxide 26, BUN 9, creatinine 0.57, calcium 8.1. ASSESSMENT AND PLAN: 1. Hyponatremia, much improved. Serum sodium is now within normal. We will discontinue the 1.5% sodium chloride. Continue free water restriction. Continue sodium chloride tablet at 1 g p.o. t.i.d. 2. Status post radical prostatectomy-Urology is following, stable. 3. Recheck basic met in a.m. Job ID: [id number]
--- NOTE | 2019-12-19 14:00 | PRG ---
DATE OF SERVICE: 12/18/2019 SUBJECTIVE: The patient states he is feeling fine. He is not having much pain. He still has not had much of a bowel movement. He is passing gas. He is tolerating a little bit of a diet without any significant nausea or vomiting. He is still drinking some fluids, although he is now fluid restricted by Dr. Keller and has been started on hypertonic saline for his hyponatremia. OBJECTIVE: VITAL SIGNS: Stable. Afebrile. GENERAL: No apparent distress, communicative, and alert. CARDIOVASCULAR: Regular rate and rhythm. ABDOMEN: Soft and distended. Hypoactive bowel sounds. Incision clean, dry, and intact. ASHLEY serosanguineous. EXTREMITIES: No clubbing, cyanosis or edema. LABORATORY DATA: The full set of labs are in the [facility] system, which I have reviewed. Of note, the patient's white count is 11.7 with a hemoglobin of 15.8. Creatinine is currently 0.6. ASSESSMENT AND PLAN: This is a 59-year-old white male with postoperative ileus and hyponatremia, of which the hyponatremia is resolving. The ileus also seems to be getting a little bit better as he is passing gas. I have recommended he continue to ambulate, continue fluid restrictions and extremely small amounts of fluid only as he desires. It does seem like he is going to start having his ileus resolve soon. I will continue to monitor and make recommendations as appropriate. Job ID: [id number]
--- NOTE | 2019-12-19 14:14 | PRG ---
DATE OF SERVICE: 12/19/2019 SUBJECTIVE: The patient states he is feeling okay. He is not having any complaints. He denies any nausea or vomiting. He is still passing gas, but has not had a bowel movement. His abdomen continues to remain distended. His hyponatremia appears to have resolved now. OBJECTIVE: VITAL SIGNS: Temperature 98.4, pulse 63, respirations 15, blood pressure 157/88, and saturation 93% on room air. GENERAL: No apparent distress, communicative, and alert. CARDIOVASCULAR: Regular rate and rhythm. ABDOMEN: Soft and distended. Incision clean, dry, intact, healing well. ASHLEY, serous. : Peña catheter in place, draining clear yellow urine, secured. EXTREMITIES: No clubbing, cyanosis or edema. LABORATORY DATA: The full set of labs are in the [facility] system, which I have reviewed. Of note, the patient's white count is 14, creatinine 0.57, and sodium of 137. ASSESSMENT AND PLAN: This is a 59-year-old white male with postoperative ileus and resolved hyponatremia. He continues to have distended abdomen, is still not opening up adequately. I think we will go ahead and consult General Surgery to come see and to see if there is any other medical treatment, and we will get a KUB to evaluate for possible bowel obstruction. If he has air-fluid levels all the way down, then I think he is having a slow to respond ileus, and we will see if there are any further recommendations or medications that can be started. The patient has already minimized narcotics and is continuing to ambulate well. I have gone over his pathology results with him which have come back, which demonstrates extremely high aggressive cancer with T4 disease, multiple positive margins and extension of the seminal vesicles. He will likely need both chemotherapy and radiation postoperatively. At the current time, he needs to continue to heal up from his surgery, and these will be done on an outpatient basis. I will continue to follow his labs and ensure that he has resolution of his ileus. Job ID: [id number]
--- NOTE | 2019-12-19 16:37 | RAD ---
Abdomen one view HISTORY: Abdominal pain. Possible obstruction. FINDINGS: Large amount of gas throughout the colon. Projecting over the right mid abdomen is floccule nt gas and soft tissue density having the appearance of the large amount of stool within the right colon and cecum. Small bowel gas pattern is nonspecific. Surgical drain projects over the pelvis from the left lower quadrant. Multiple skin yadira from rece nt surgery. Phleboliths project over the pelvis. A small lobular calcific density projects immediately to the left of the L1 vertebral body and may re present extrinsic artifact. IMPRESSION: Mild gaseous and fecal distention of the colon as detailed above. While a very low colon/ rectal obstruction could cause this appearance, constipation and/or ileus is favored. This is not the appearance of a small bowel obstruction.
[2019-12-19] MEDS: Sodium Chloride 0.9% 1,000 ML IV SCH ×2 (17:31→23:48)
--- NOTE | 2019-12-19 19:32 | CON ---
DATE OF CONSULTATION: REQUESTING PHYSICIAN: Dr. Venancio Macias. CONSULTING PHYSICIAN: Dr. Wilkerson. HISTORY OF PRESENT ILLNESS: Mr. Washburn is a 59-year-old male, who came into the hospital due to severe retention, and he sustained prostate cancer, in which, he underwent laparoscopic prostatectomy with bilateral pelvic lymph node dissection with conversion of surgery to an open procedure on December 12. Postop day 7 today, the patient has developed ileus. He is unable to have bowel, abdominal distention, and able to pass very little gas, and unable to tolerate his diet. Dr. Macias consulted General Surgery for different medical treatment of postop ileus or possible bowel obstruction. Dr. Wilkerson will consult. Dr. Wilkerson saw the patient this afternoon and recommended to treat the postop ileus with aggressive physical activity and Movantik, very limited sign of bowel obstruction on imaging or clinical examination. ALLERGIES: IODINE AND SHELLFISH. PAST MEDICAL HISTORY: None. PAST SURGICAL HISTORY: None. SOCIAL HISTORY: Drinking beer for every day, smoking half a pack a day. Denies drug use. The patient lives at home. REVIEW OF SYSTEMS: Noncontributory except per HPI. PHYSICAL EXAMINATION: GENERAL: The patient is lying in bed with no acute respiratory distress. Complains of abdominal distention and bloating. HEART: Regular rate and rhythm. LUNGS: Clear bilaterally. ABDOMEN: Soft. Abdominal incision site is clean and dry. Severe distention with bowel sound active and mild tender to palpation, but obviously no signs of peritonitis. EXTREMITIES: Neurovascularly intact x4. NEUROLOGIC: No focal neurology deficits. ASSESSMENT: 1. Status post prostatectomy, postop day 7. 2. Postop ileus. PLAN: Dr. Wilkerson saw the patient and recommended to start the patient on Movantik, encouraged aggressive walking, no surgical indication at this time. General Surgery will continue to follow. Please notify General Surgery with any change in the patient's condition. Job ID: [id number] MTDD
[2019-12-19] MEDS: HYDROcodone/Acetaminophen 7.5/325 mg Tablet PO PRN (19:48)
--- NOTE | 2019-12-20 00:25 | PRG ---
DATE OF SERVICE: 12/20/2019 SUBJECTIVE: This is a patient that we are seeing in consultation for an ileus. The patient is status post a radical prostatectomy for prostate cancer. The patient started having some bloating and decreased flatus and no bowel movement. The patient's abdominal x-ray this morning was consistent with ileus and we were asked to evaluate him to see if there were other medical management options available. At the time of my visit, the patient had received his Movantik and had a bowel movement. He denied any nausea or vomiting and felt relieved. ASSESSMENT: Postop ileus, resolved. PLAN: Plan will be to continue supportive care. Advance diet as tolerated. Encourage out of bed and we will see him one more time tomorrow and then likely sign off. Job ID: [id number]
[2019-12-20 05:40] LABS: Anion Gap 12 mmol/L (10-20); BUN (Urea Nitrogen) 9 mg/dL (8.4-25.7); Calc. Creatinine Clearance 136 mL/min (70-130); Calcium 7.7 mg/dL (7.8-10.44); Carbon Dioxide 22 mmol/L (22-29); Chloride 105 mmol/L (98-107); Estimated GFR-MDRD Greater than 90; Glucose 93 mg/dL (70-105); Potassium 3.8 mmol/L (3.5-5.1); Sodium 135 mmol/L (136-145)
[2019-12-20] MEDS: Acetaminophen 500 MG TAB PO SCH (06:02)
[2019-12-20] MEDS: Metoprolol Tartrate 25 MG TAB PO SCH (08:39)
[2019-12-20] MEDS: Sodium Chloride 1 GM TAB PO SCH (08:39)
[2019-12-20] MEDS: Docusate 100 MG CAP PO SCH (08:39)
[2019-12-20] MEDS: Sodium Chloride 0.9% 1,000 ML IV SCH (08:40)
[2019-12-20] MEDS ORDERED: traMADol HCl 50 MG TAB PO PRN ×2 (09:07→09:08)
[2019-12-20] MEDS ORDERED: Ibuprofen 600 MG TAB PO PRN (09:07)
--- NOTE | 2019-12-20 10:19 | PRG ---
DATE OF SERVICE: 12/20/2019 SUBJECTIVE: Mr. Washburn is a 59-year-old white male, who has a diagnosis of prostate cancer, underwent open radical prostatectomy. We are following up this patient for his hyponatremia. Initially, we felt this could be volume related hyponatremia. Empiric volume repletion was given with no significant improvement. He most likely has SIADH. He is status post hypertonic saline. Resume normal saline at 125 mL an hour and in addition, the patient was placed on sodium chloride tablets. No new complaints today. No chest pain. No shortness of breath. OBJECTIVE: VITAL SIGNS: Blood pressure 133/76, heart rate 64, respiratory rate 16, temperature 97.8, pulse ox 92%. GENERAL: The patient is awake, alert, comfortable, not in distress. SKIN: Adequate turgor. HEENT: Pinkish conjunctivae. Anicteric sclerae. NECK: No neck mass. No carotid bruits. No JVD. CHEST: No deformities. LUNGS: Clear breath sounds. HEART: Normal sinus rhythm. No murmur. No gallops. No rubs. ABDOMEN: Globular, soft, nontender. No masses. EXTREMITIES: No edema. No deformities. LABORATORY DATA: Laboratories of December 20, 2019; sodium 135, potassium 3.8, chloride 105, carbon dioxide 22, BUN 9, creatinine 0.52, calcium 7.7. ASSESSMENT AND PLAN: 1. Hyponatremia-consider syndrome of inappropriate antidiuretic hormone secretion. Continue sodium chloride tablets. Currently, on normal saline at 125 mL/hour. If the serum sodium will worsen, we will consider placing him back on hypertonic saline and/or just giving him tolvaptan 15 mg tablets. 2. Status post radical prostatectomy, stable, doing well. Surgery is following. 3. Agree with current management. Recheck basic metabolic panel in a.m. Job ID: [id number]
[2019-12-20 11:23] VITALS: BP 125/72; TEMP 98.7
[2019-12-20] MEDS ORDERED: Acetaminophen 500 MG TAB PO SCH (12:00)
--- NOTE | 2019-12-20 12:01 | PRG ---
DATE OF SERVICE: 12/20/2019 Mr. Washburn is a 59-year-old male. We have been consulted for having ileus. The patient was ordered Movantik yesterday. This morning, the patient had 3 bowel movements, and he is feeling much better. Dr. Wilkerson on round this morning recommended chest pain management, encouraged activity, and discontinued Movantik. General Surgery will sign off from now. Continue care per primary team, Dr. Venancio Macias. Job ID: [id number]
--- NOTE | 2019-12-20 15:29 | PRG ---
DATE OF SERVICE: 12/20/2019 SUBJECTIVE: The patient was seen by Dr. Wilkerson yesterday. His plain film x-ray did not demonstrate high suspicion for bowel obstruction. He was started on Movantik and had subsequently approximately 6 bowel movements. He is feeling much better. His abdomen is less distended. His ASHLEY is now leaking around the ASHLEY site, but is still putting out some fluid. This previously had been checked and found to be consistent with serum and not urine. He states he has minimal pain. Dr. Keller was contacted today and stated that he would be okay with discharge home, but has plans to continue to monitor his hyponatremia. OBJECTIVE: VITAL SIGNS: Afebrile. Vital signs stable have been reviewed. GENERAL: No apparent distress. CARDIOVASCULAR: Regular rate and rhythm. ABDOMEN: Soft and nontender. Minimally distended. Incision is clean, dry, and intact. ASHLEY, serous. : Peña catheter secured with clear yellow urine. EXTREMITIES: No clubbing, cyanosis, or edema. LABORATORY EVALUATION: The full set of labs are in the [facility] system, which I have reviewed. Of note, the patient has no new labs today. ASSESSMENT AND PLAN: A 59-year-old white male with prostate cancer, status post robotic converted to open prostatectomy, postoperative day 8 with subsequent hyponatremia and postoperative ileus now, which both seem to be resolved. He is okay from my standpoint to be discharged home. We will discontinue his ASHLEY drain. He will need to go home with his Peña catheter in place. I will see him back in 1 week for a voiding trial after he received a cystogram to ensure for no urine leak. Additionally, he will need followup with Dr. Keller to ensure that he is not having recurrent hyponatremia. So long as his bowel movements are doing well and he does not have evidence of obstruction, I do not think that he needs any further followup with General Surgery. Job ID: [id number]
--- NOTE | 2019-12-21 02:26 | DIS ---
DATE OF ADMISSION: 12/12/2019 DATE OF DISCHARGE: 12/20/2019 ADMITTING DIAGNOSIS: Prostate cancer. DISCHARGE DIAGNOSES: 1. Prostate cancer. 2. Postoperative ileus. 3. SIADH with hyponatremia. ADMITTING: Venancio Macias MD DISCHARGING: Venancio Macias MD PROCEDURE PERFORMED: Robotic-assisted lap prostatectomy, converted to open radical retropubic prostatectomy. BRIEF HISTORY: Mr. Washburn is a 59-year-old white male with advanced prostate cancer with a PSA of 21 and [place] score of 4 + 5. He had no evidence of metastatic disease and was being brought in for prostatectomy. The full H and P can be found in the scanned portion of the [employer] system. HOSPITAL COURSE: After his surgeries (please see operative note for details) the patient was brought to the surgical floor for postoperative recovery. He had a ASHLEY drain in, as well as a Peña catheter. He did well over the weekend, but started to become distended on his abdomen despite tolerating a regular diet. He was kept on clear liquids with scant amounts of solid food only as tolerated. His abdomen remained distended, although he was passing gas. He was getting up and ambulating quite well. His ASHLEY was putting out approximately between 100 and 300 mL. This was checked for a urine leak, but the ASHLEY creatinine came back at 0.5. During this time, it was noted that the patient's sodium was trending down, initially had started at 138 and subsequently dropped all the way down to 127. Out of concern for the severity of his hyponatremia, consult was placed to Nephrology with Dr. Keller, who saw the patient and stated that he may have SIADH secondary to his surgery. He was started on hypertonic saline as well as salt tabs and fluid restriction, which resulted in normalization of his sodium back up to 137. During this time, the patient did not experience any kind of seizure activity or neurological complications. However, by postop day #7, the patient did not significantly show signs of increase in bowel function. Consult was placed to General Surgery and Dr. Wilkerson came and saw the patient. An x-ray was ordered and the KUB demonstrated no evidence of significant bowel obstruction. The patient was started on Movantik with significant increase in bowel function with subsequently approximately six bowel movements with significant decompression of the patient's bladder. At this point, the patient was already on a minimal amount of pain medication. He had been up walking around. He was fairly comfortable taking care of his catheter. The remainder of his labs besides the sodium looked good. We felt the patient was stable enough for discharge and the patient ultimately was discharged home without any further issues. DISPOSITION: Discharged to home. DISCHARGE CONDITION: Good. DISCHARGE MEDICATIONS: The patient can resume all of his home medications. In addition, he will be given: 1. Hydrocodone 5/325 one tab p.o. q.6 hours p.r.n. pain. 2. Colace 100 mg p.o. b.i.d. 3. Oxybutynin 5 mg p.o. t.i.d. p.r.n. bladder spasms as well as a single dose levofloxacin tablets, take on the day of his catheter removal. I will see him back in approximately 1 week from discharge for staple removal, as well as a cystogram to evaluate him for void trial. Job ID: [id number]
== END 2019-12-20 14:50 | disposition home or self-care (01) | DRG 707 ==
LOC: SURG A 12-12 05:34
PROVIDERS: ADMIT Urology; ATTEND Urology
PROC: 0VT00ZZ Resection of Prostate, Open Approach (ICD-10-PCS; principal; 2019-12-12)
PROC: 07TC0ZZ Resection of Pelvis Lymphatic, Open Approach (ICD-10-PCS; 2019-12-12)
PROC: 0VT30ZZ Resection of Bilateral Seminal Vesicles, Open Approach (ICD-10-PCS; 2019-12-12)
PROC: 0VTQ0ZZ Resection of Bilateral Vas Deferens, Open Approach (ICD-10-PCS; 2019-12-12)
PROC: 8E0W0CZ Robotic Assisted Procedure of Trunk Region, Open Approach (ICD-10-PCS; 2019-12-12)
DX: C61 Malignant neoplasm of prostate (principal); K56.7 Ileus, unspecified; E22.2 Syndrome of inappropriate secretion of antidiuretic hormone; E87.6 Hypokalemia; I10 Essential (primary) hypertension; E78.5 Hyperlipidemia, unspecified; G43.909 Migraine, unspecified, not intractable, without status migrainosus; F17.210 Nicotine dependence, cigarettes, uncomplicated; F41.9 Anxiety disorder, unspecified; Z91.041 Radiographic dye allergy status; Z91.013 Allergy to seafood; Z79.899 Other long term (current) drug therapy
CPT/HCPCS: 36415; 74018; 76770; 80048; 81003; 82533; 82570; 84300; 84443; 84550; 85025; 85027; 86850; 86900; 86901; 88309; 90471; 90686; 90732; A4217; G0008; G0009; J0360; J0670; J0694; J1100; J1642; J2250; J2270; J2405; J2704; J3010; J3490

== ENCOUNTER 2019-11-29 07:14 | Outpatient (CLI) | payer BC, OTHER ==
[2019-11-29 10:28] LABS: Hemoglobin 16.9 g/dL (14.0-18.0); Mean Corpuscular HGB CONC 33.1 g/dL (32.0-36.0); Mean Corpuscular Hemoglobin 33.9 pg (27.0-31.0); Mean Platelet Volume 8.2 fL (7.4-10.4); Platelet Count 223 thou/uL (130-400); RBC Distribution Width 12.6 % (11.5-14.5); Red Blood Cell (RBC) Count 4.98 mill/uL (4.70-6.10); White Blood Cell (WBC) Count 10.3 thou/uL (4.8-10.8)
[2019-11-29 10:33] LABS: INR-International Normal Ratio 0.9; PTT 29.9 SEC (22.9-36.1); Prothrombin Time 12.2 SEC (12.0-14.7)
[2019-11-29 10:39] LABS: ALT (SGPT) 20 U/L (8-55); AST (SGOT) 34 U/L (5-34); Albumin 4.6 g/dL (3.5-5.0); Alkaline Phosphatase 43 U/L (40-110); Anion Gap 15 mmol/L (10-20); BUN (Urea Nitrogen) 8 mg/dL (8.4-25.7); Bilirubin, Total 0.5 mg/dL (0.2-1.2); Calc. Creatinine Clearance 0 mL/min (70-130); Calcium 9.9 mg/dL (7.8-10.44); Carbon Dioxide 27 mmol/L (22-29); Chloride 99 mmol/L (98-107); Estimated GFR-MDRD Greater than 90; Globulin 2.7 g/dL (2.4-3.5); Glucose 96 mg/dL (70-105); Potassium 5.1 mmol/L (3.5-5.1); Protein, Total 7.3 g/dL (6.0-8.3); Sodium 136 mmol/L (136-145)
[2019-11-29 10:39] LABS: Bacteria/HPF None Seen HPF (None Seen); Bilirubin Negative (Negative); Blood, Urine Negative (Negative); Clarity Clear (Clear); Glucose, Urine (Dipstick) Normal (Negative); Leukocyte Negative Leu/uL (Negative); Nitrite Negative (Negative); Protein, Urine (Dipstick) Negative (Neg-Trace); RBC/HPF 0-3 HPF (0-3); Squamous Epithelial None Seen HPF (0-3); Urobilinogen Normal mg/dL (Less than 2); WBC/HPF 0-3 HPF (0-3)
--- NOTE | 2019-11-29 16:35 | EKG ---
Test Reason : Blood Pressure : / mmHG Vent. Rate : 084 BPM Atrial Rate : 084 BPM P-R Int : 150 ms QRS Dur : 094 ms QT Int : 392 ms P-R-T Axes : 077 103 055 degrees QTc Int : 463 ms Normal sinus rhythm Rightward axis Borderline ECG No previous ECGs available Confirmed by DR. El LEAVITT ([id number]) on 11/29/2019 4:35:19 PM Referred By: ZUNILDA Confirmed By:DR. El LEAVITT
== END 2019-11-29 07:15 | disposition home or self-care (01) ==
LOC: LABBT 07:14
PROVIDERS: ATTEND Urology
DX: Z01.818 Encounter for other preprocedural examination (principal); C61 Malignant neoplasm of prostate
CPT/HCPCS: 80053; 81001; 85027; 85610; 85730; 87086; 93005; 93010

== ENCOUNTER 2019-12-30 09:04 | Outpatient (CLI) | payer BC ==
--- NOTE | 2019-12-30 10:26 | RAD ---
Exam: Cystogram HISTORY: Bladder leak/injury, status post prostatectomy FINDINGS: Peña catheter was already in place. Via the Peña catheter, the patient was ministered pro ximally 40 to 50 cc of Isovue 370 contrast Contrast opacifies the urinary bladder. Lobulation of the bladder is noted. There is evidence of extr avasation of contrast outside of the bladder and, the level the bladder base/prosthetic urethra. IMPRESSION: Leak at the base of the bladder/prosthetic urethra.
== END 2019-12-30 09:05 | disposition home or self-care (01) ==
LOC: RAD 09:04
PROVIDERS: ATTEND Urology
DX: C61 Malignant neoplasm of prostate (principal); T83.198A Other mechanical complication of other urinary devices and implants, initial encounter
CPT/HCPCS: 51600; 74430

== ENCOUNTER 2020-01-13 08:56 | Outpatient (CLI) | payer BC ==
--- NOTE | 2020-01-13 10:16 | RAD ---
Exam: Retrograde cystogram HISTORY: Bladder leak. Prostate cancer. COMPARISON: 12/30/2019 FINDINGS: Initial telephone diaphragm assembler radiograph of the pelvis is unremarkable Patient was administered 50 cc of contrast in a retrograde fashion (Isovue-370). There is evidence of a small leak at the level of the prosthetic urethra/base of the bladder. The degree of extravasated contrast is less so than the previous exam. Stable nodularity and outpouchings of the bl adder are noted IMPRESSION: Persistent but decreased leak at the level of the prosthetic urethra/base of the bladder.
[2020-01-13] MEDS ORDERED: Iopamidol-370 76% 500 ML 1 ML ONE (14:30)
== END 2020-01-13 08:57 | disposition home or self-care (01) ==
LOC: RAD 08:56
PROVIDERS: ATTEND Urology
DX: C61 Malignant neoplasm of prostate (principal)
CPT/HCPCS: 51600; 74430; Q9967

== ENCOUNTER 2021-08-19 13:44 | Outpatient (CLI) | payer BC ==
[2021-08-19 15:08] LABS: #Basophils 0.1 10x3/uL (0.0-0.2); #Eosinphils 0.2 10x3/uL (0.0-0.5); #Neutrophils 5.9 10x3/uL (1.5-8.4); %Basophils 1.3 % (0.0-2.0); %Eosinophils 2.5 % (0.0-6.0); %Lymphocytes 20.8 % (18.0-47.0); %Monocytes 10.4 % (0.0-10.0); %Neutrophils 64.7 % (40.0-75.0); Hemoglobin 16.1 g/dL (13.5-17.5); Mean Corpuscular HGB CONC 35.2 g/dL (32.0-36.0); Mean Corpuscular Hemoglobin 35.5 pg (27.0-33.0); Mean Corpuscular Volume 100.7 fl (81.2-95.1); Mean Platelet Volume 10.1 fl (7.4-10.4); Platelet Count 255 10x3/uL (150-450); RBC Distribution Width 14.1 % (11.5-14.5); Red Blood Cell (RBC) Count 4.54 10x6/uL (4.32-5.72); White Blood Cell (WBC) Count 9.1 10x3/uL (3.5-10.5)
[2021-08-19 15:20] LABS: Anion Gap 18 mmol/L (10-20); BUN (Urea Nitrogen) 8 mg/dL (8.4-25.7); Calc. Creatinine Clearance 0 mL/min (70-130); Calcium 10.4 mg/dL (7.8-10.44); Carbon Dioxide 24 mmol/L (22-29); Chloride 100 mmol/L (98-107); Glucose 93 mg/dL (70-105); Potassium 4.7 mmol/L (3.5-5.1); Sodium 137 mmol/L (136-145)
[2021-08-19 20:24] LABS: Hemoglobin A1c 4.9 % (4.0-6.0)
[2021-08-20 09:10] LABS: SARS-CoV-2 PCR by NAA Not Detected (NotDetected)
== END 2021-08-19 13:45 | disposition home or self-care (01) ==
LOC: LABBT 13:44
PROVIDERS: ATTEND Specialist
DX: Z01.818 Encounter for other preprocedural examination (principal); C61 Malignant neoplasm of prostate; Z20.822 Contact with and (suspected) exposure to COVID-19
CPT/HCPCS: 80048; 83036; 85025; 93005; 93010; U0003; U0005

== ENCOUNTER 2021-08-19 14:00 | Inpatient (IN) | payer BC ==
[2021-08-24] MEDS ORDERED: HYDROmorphone 2 MG/ML VIAL ONE (06:26)
[2021-08-24] MEDS ORDERED: Fentanyl 100 MCG/2 ML VIAL ONE ×2 (06:26→07:18)
[2021-08-24] MEDS ORDERED: Midazolam HCl 2 mg/2 ml Vial ONE ×2 (06:26→07:18)
[2021-08-24] MEDS ORDERED: Famotidine/PF 20 mg/2ml Vial ONE (06:27)
[2021-08-24] MEDS ORDERED: Ketorolac Tromethamine 30 MG/ML VIAL ONE (06:51)
[2021-08-24] MEDS ORDERED: Acetaminophen 500 MG TAB ONE (06:51)
[2021-08-24] MEDS ORDERED: cefOXitin Sodium/Dextrose 2 GM/50 ML BAG ONE (06:51)
[2021-08-24] MEDS ORDERED: Lidocaine 1% w/Epinephrine 1:100K 20 ML VIAL ONE (07:15)
[2021-08-24] MEDS ORDERED: Bupivacaine 0.25% HCL 30 ML VIAL ONE (07:15)
[2021-08-24] MEDS ORDERED: Bupivacaine HCl 0.5%/Epinephrine 1:200,000/PF 30 ml Vial ONE (07:30)
[2021-08-24] MEDS ORDERED: Lidocaine 1% PF 5 ML VIAL ONE (07:43)
[2021-08-24] MEDS ORDERED: Dexamethasone 20 MG/5 ML VIAL ONE (07:43)
[2021-08-24] MEDS ORDERED: PROPOFOL 200 MG/20 ML VIAL ONE (07:43)
[2021-08-24] MEDS ORDERED: Ondansetron PF 4 MG/2 ML Vial ONE (07:43)
[2021-08-24] MEDS ORDERED: PHENYLEPHRINE-NS 100 MCG/ML 10 ML SYRINGE ONE (07:43)
[2021-08-24] MEDS ORDERED: Rocuronium Bromide 10 MG/ML (10ML VIAL) ONE (07:43)
[2021-08-24] MEDS ORDERED: ePHEDrine 50 MG/ML VIAL ONE (07:43)
[2021-08-24] MEDS ORDERED: Glycopyrrolate 0.2 MG/ML 5 ML SYRINGE ONE (07:43)
[2021-08-24] MEDS ORDERED: HYDROmorphone 2 MG/ML VIAL SLOW IVP PRN (08:24)
[2021-08-24] MEDS ORDERED: Ondansetron HCl/PF 4 MG/2 ML Vial IVP PRN (08:24)
[2021-08-24] MEDS ORDERED: Promethazine HCl 25 MG/ML VIAL IM PRN ×2 (08:24→15:27)
[2021-08-24] MEDS ORDERED: Promethazine HCl 25 MG/ML VIAL IVPB PRN (08:24)
[2021-08-24 14:51] VITALS: BMI 21.0
[2021-08-24] MEDS ORDERED: Morphine 4 MG/ML VIAL SLOW IVP PRN (15:27)
[2021-08-24] MEDS ORDERED: Ondansetron PF 4 MG/2 ML Vial IVP PRN (15:27)
[2021-08-24] MEDS ORDERED: Morphine 2 MG/ML VIAL SLOW IVP PRN (15:27)
[2021-08-24] MEDS ORDERED: hydrALAZINE 20 MG/ML VIAL SLOW IVP PRN (15:27)
[2021-08-24] MEDS ORDERED: Famotidine/PF 20 mg/2ml Vial SLOW IVP SCH (16:00)
[2021-08-24] MEDS ORDERED: Lisinopril 10 MG TAB PO SCH (16:00)
[2021-08-24] MEDS ORDERED: Famotidine 20 MG TAB PO SCH (16:00)
[2021-08-24] MEDS: Ketorolac Tromethamine 30 MG/ML VIAL IVP SCH ×2 (17:04→21:30)
[2021-08-24] MEDS: D5 1/2 NS w/20 mEq KCL 1,000 ML IV SCH ×2 (17:12→23:50)
[2021-08-24] MEDS: Enoxaparin Sodium 40 MG/0.4 ML SYRINGE SC SCH (21:31)
[2021-08-24] MEDS: Famotidine/PF 20 mg/2ml Vial SLOW IVP SCH (21:32)
[2021-08-25] MEDS: Ketorolac Tromethamine 30 MG/ML VIAL IVP SCH ×3 (04:30→16:34)
[2021-08-25] MEDS ORDERED: HYDROcodone/Acetaminophen 7.5/325 mg Tablet PO PRN ×2 (07:39)
[2021-08-25 07:46] LABS: #Monocytes 1.2 thou/uL (0.11-0.59); #Neutrophils 9.4 thou/uL (1.40-6.50); %Basophils 0.2 % (0.0-1.0); %Eosinophils 0.1 % (0.0-10.0); %Monocytes 10.5 % (0.0-10.0); %Neutrophils 80.3 % (42.0-75.0); Hemoglobin 14.9 g/dL (14.0-18.0); MDiff Complete? YES; Macrocytosis SLIGHT = 6-15 cells (100X) (0-5/hpf); Mean Corpuscular Hemoglobin 36.1 pg (27.0-31.0); Mean Platelet Volume 7.6 fL (7.4-10.4); Platelet Count 226 thou/uL (130-400); Platelet Morphology Comment Appears Adequate; RBC Distribution Width 12.8 % (11.5-14.5); Red Blood Cell (RBC) Count 4.14 mill/uL (4.70-6.10); White Blood Cell (WBC) Count 11.7 thou/uL (4.8-10.8)
[2021-08-25 07:50] LABS: Anion Gap 12 mmol/L (10-20); BUN (Urea Nitrogen) 10 mg/dL (8.4-25.7); Calc. Creatinine Clearance 95 mL/min (70-130); Calcium 8.9 mg/dL (7.8-10.44); Carbon Dioxide 24 mmol/L (22-29); Chloride 103 mmol/L (98-107); Glucose 128 mg/dL (70-105); Potassium 4.5 mmol/L (3.5-5.1); Sodium 134 mmol/L (136-145)
[2021-08-25] MEDS: Lisinopril 10 MG TAB PO SCH (08:09)
[2021-08-25] MEDS: Famotidine 20 MG TAB PO SCH ×2 (08:09→20:29)
[2021-08-25] MEDS: Famotidine/PF 20 mg/2ml Vial SLOW IVP SCH ×2 (08:10→20:10)
[2021-08-25] MEDS: D5 1/2 NS w/20 mEq KCL 1,000 ML IV SCH ×2 (08:11→08:18)
[2021-08-25] MEDS ORDERED: D5 1/2 NS w/20 mEq KCL 1,000 ML IV SCH (09:00)
[2021-08-25] MEDS ORDERED: hydrALAZINE 10 MG TAB PO PRN (20:01)
[2021-08-25] MEDS: Enoxaparin Sodium 40 MG/0.4 ML SYRINGE SC SCH (20:29)
[2021-08-26] MEDS: Ibuprofen 600 MG TAB PO SCH ×2 (00:31→05:16)
[2021-08-26 07:44] VITALS: TEMP 97.7
[2021-08-26] MEDS: Lisinopril 10 MG TAB PO SCH (08:40)
[2021-08-26] MEDS: Famotidine 20 MG TAB PO SCH (08:40)
[2021-08-26 08:41] VITALS: BP 1725/82
[2021-08-27] MEDS ORDERED: Ibuprofen 600 MG TAB PO PRN (22:00)
== END 2021-08-26 11:10 | disposition home or self-care (01) | DRG 908 ==
LOC: SURG A 08-24 06:19 → EDSTATUS 08-24 14:00 → SURG B 08-24 14:52
PROVIDERS: ADMIT Specialist; ATTEND Specialist
PROC: 0D1L0Z4 Bypass Transverse Colon to Cutaneous, Open Approach (ICD-10-PCS; principal; 2021-08-24)
DX: T81.83XA Persistent postprocedural fistula, initial encounter (principal); N32.1 Vesicointestinal fistula; Q43.8 Other specified congenital malformations of intestine; C61 Malignant neoplasm of prostate; Y83.8 Other surgical procedures as the cause of abnormal reaction of the patient, or of later complication, without mention of misadventure at the time of the procedure; Y84.2 Radiological procedure and radiotherapy as the cause of abnormal reaction of the patient, or of later complication, without mention of misadventure at the time of the procedure; I10 Essential (primary) hypertension; G43.909 Migraine, unspecified, not intractable, without status migrainosus; F17.210 Nicotine dependence, cigarettes, uncomplicated; F41.9 Anxiety disorder, unspecified; Z79.899 Other long term (current) drug therapy
CPT/HCPCS: 36415; 80048; 85025; J0694; J1100; J1170; J1650; J1885; J2250; J2405; J2704; J3010; J3480; J3490; S0020; S0028

== ENCOUNTER 2022-03-03 08:04 | Outpatient (CLI) | payer BC | END 2022-03-03 08:05 | disposition home or self-care (01) | LOC: CT 08:04 | PROVIDERS: ATTEND Internal Medicine Hematology & Oncology | DX: C61 Malignant neoplasm of prostate (principal) | CPT/HCPCS: 74177 ==

== ENCOUNTER 2023-05-11 15:07 | Outpatient (CLI) | payer BC | END 2023-05-11 15:08 | disposition home or self-care (01) | LOC: SCSRAD 15:07 | PROVIDERS: ATTEND Family Medicine | DX: M25.552 Pain in left hip (principal); S72.92XA Unspecified fracture of left femur, initial encounter for closed fracture ==